=== PATIENT | female | born 1995 | race African-American/Black ===

== ENCOUNTER 2021-03-20 08:01 | Inpatient (IN) | payer MEDICAID ==
[~2021-03-20] VITALS: Ht 172.7 cm; Wt 78.6 kg
[2021-03-20] MEDS ORDERED: OXYTOCIN 30U/ 0.9% NaCL 500ML 500 ML ONE (08:23)
[2021-03-20] MEDS ORDERED: OXYTOCIN 30U/ 0.9% NaCL 500ML 500 ML IV ONE (08:30)
[2021-03-20] MEDS ORDERED: FENTANYL PF 100 MCG/2ML IVPush PRN (08:30)
[2021-03-20] MEDS ORDERED: TERBUTALINE 1 MG/ML, 1ML SQ PRN (08:30)
[2021-03-20] MEDS ORDERED: TERBUTALINE 1 MG/ML, 1ML IVPush PRN (08:30)
[2021-03-20] MEDS ORDERED: CALCIUM CARBONATE 500 MG TAB.CHEW PO PRN (08:30)
[2021-03-20] MEDS ORDERED: D5%-LACTATED RINGERS 1,000 ML IV SCH (08:30)
[2021-03-20] MEDS ORDERED: ONDANSETRON 2MG/ML, 2ML IVPush PRN (08:30)
[2021-03-20] MEDS ORDERED: FENTANYL PF 100 MCG/2ML IV PRN (08:30)
[2021-03-20] MEDS ORDERED: OXYTOCIN 30U/ 0.9% NaCL 500ML 500 ML IV PRN (08:30)
[2021-03-20] MEDS ORDERED: PLEASE ENTER HEIGHT AND WEIGHT MC SCH (08:30)
[2021-03-20 08:38] LABS: BASOPHILS % (AUTO) 0 % (0-1); EOSINOPHILS % (AUTO) 1 % (1-7); LYMPHOCYTES % (AUTO) 28 % (22-44); MEAN CORPUSCULAR HEMOGLOBIN 24.2 pg (27.0-34.8); MEAN CORPUSCULAR HGB CONC 32.2 g/dL (32.4-35.8); MEAN PLATELET VOLUME 7.4 fL (7.4-10.4); MONOCYTES % (AUTO) 10 % (2-9); NEUTROPHILS % (AUTO) 61 % (42-75); PLATELET COUNT 301 x10^3/uL (130-400); RED BLOOD COUNT 4.37 x10^6/uL (3.82-5.3); RED CELL DISTRIBUTION WIDTH 25.1 % (9.6-15.2)
[2021-03-20] MEDS: LACTATED RINGERS 1,000 ML IV SCH ×4 (08:51→12:48)
[2021-03-20 09:03] VITALS: BP 91/57
[2021-03-20 09:20] LABS: ANISOCYTOSIS 1+; ECHINOCYTES 1+; MICROCYTOSIS 1+; OVALOCYTES 1+
[2021-03-20 09:21] LABS: <PLATELET ESTIMATE> ADEQUATE; <PLT MORPHOLOGY> NORMAL PLT MORPH; HYPOCHROMIA 1+; POLYCHROMASIA 1+
[2021-03-20] MEDS ORDERED: BUPIVACAINE 0.25% ONE (10:57)
[2021-03-20] MEDS ORDERED: FENTANYL/BUPIV./NS/PF 250 ML EPIDCONT ONE (10:57)
[2021-03-20] MEDS ORDERED: LACTATED RINGERS 1,000 ML IVBOLUS PRN (13:00)
[2021-03-20] MEDS ORDERED: EPHEDRINE 50 MG/ML, 1ML IVPush PRN (13:00)
[2021-03-20] MEDS ORDERED: LACTATED RINGERS 1,000 ML IV SCH (13:00)
[2021-03-20] MEDS ORDERED: FENTANYL/BUPIV./NS/PF 250 ML EPIDCONT SCH (13:00)
[2021-03-20] MEDS ORDERED: NEWBORN KIT ONE (13:18)
[2021-03-20] MEDS ORDERED: MAGNESIUM HYDROXIDE 8%, 30ML UDC PO PRN (18:30)
[2021-03-20] MEDS ORDERED: CARBOPROST TROMETHAMINE 250 MCG/ML, 1ML IM PRN (18:30)
[2021-03-20] MEDS ORDERED: DIPH,PERTUSS(ACELL),TET VAC/PF NC IM-VACC PRN (18:30)
[2021-03-20] MEDS ORDERED: GLYCERIN ADULT SUPP PR PRN (18:30)
[2021-03-20] MEDS ORDERED: OXYcodone/APAP 5/325MG TABLET PO PRN ×2 (18:30)
[2021-03-20] MEDS ORDERED: SIMETHICONE 80 MG CHEW TAB PO PRN (18:30)
[2021-03-20] MEDS ORDERED: METHYLERGONOVINE 0.2 MG/ML IM PRN (18:30)
[2021-03-20] MEDS ORDERED: MISOPROSTOL 200 MCG TABLET PR PRN (18:30)
[2021-03-20] MEDS ORDERED: ONDANSETRON 2MG/ML, 2ML IV PRN (18:30)
[2021-03-20] MEDS ORDERED: METOCLOPRAMIDE 5 MG/ML, 2ML IV PRN (18:30)
[2021-03-20] MEDS ORDERED: ACETAMINOPHEN 325 MG TABLET PO PRN ×2 (18:30)
[2021-03-20] MEDS ORDERED: DOCUSATE 100 MG CAPSULE PO PRN (18:30)
[2021-03-20] MEDS ORDERED: BISACODYL 10 MG SUPP PR PRN (18:30)
[2021-03-20] MEDS: OXYTOCIN 30U/ 0.9% NaCL 500ML 500 ML IV SCH (18:47)
[2021-03-20 20:45] VITALS: BP 94/58
[2021-03-20] MEDS: IBUPROFEN 600 MG TABLET PO PRN (23:40)
[2021-03-21 00:30] VITALS: BP 98/49
[2021-03-21 02:09] LABS: BASOPHILS % (AUTO) 0 % (0-1); EOSINOPHILS % (AUTO) 1 % (1-7); LYMPHOCYTES % (AUTO) 20 % (22-44); MEAN CORPUSCULAR HEMOGLOBIN 24.1 pg (27.0-34.8); MEAN CORPUSCULAR HGB CONC 31.8 g/dL (32.4-35.8); MEAN PLATELET VOLUME 7.8 fL (7.4-10.4); MONOCYTES % (AUTO) 10 % (2-9); NEUTROPHILS % (AUTO) 69 % (42-75); PLATELET COUNT 296 x10^3/uL (130-400); RED BLOOD COUNT 4.03 x10^6/uL (3.82-5.3); RED CELL DISTRIBUTION WIDTH 25.4 % (9.6-15.2)
[2021-03-21 04:10] VITALS: BP 95/56
[2021-03-21] MEDS: OXYTOCIN 30U/ 0.9% NaCL 500ML 500 ML IV SCH ×2 (04:30→14:30)
[2021-03-21] MEDS ORDERED: IBUP-1222 PO (08:16)
[2021-03-21 08:45] VITALS: BP 94/58
[2021-03-21] MEDS: IBUPROFEN 600 MG TABLET PO PRN ×2 (08:55→17:36)
[2021-03-21] MEDS ORDERED: PRENATAL VIT/IRON/FA 1 EACH TABLET PO SCH (09:00)
[2021-03-21 13:30] VITALS: BP 100/68
== END 2021-03-21 18:00 | disposition home or self-care (01) | DRG 807 ==
LOC: LDIP 08:01 → 2NW 20:40
PROVIDERS: ADMIT Obstetrics & Gynecology; ATTEND Obstetrics & Gynecology
PROC: 10E0XZZ Delivery of Products of Conception, External Approach (ICD-10-PCS; principal; 2021-03-20)
PROC: 0KQM0ZZ Repair Perineum Muscle, Open Approach (ICD-10-PCS; 2021-03-20)
PROC: 3E0R3BZ Introduction of Anesthetic Agent into Spinal Canal, Percutaneous Approach (ICD-10-PCS; 2021-03-20)
PROC: 00HU33Z Insertion of Infusion Device into Spinal Canal, Percutaneous Approach (ICD-10-PCS; 2021-03-20)
DX: O99.02 Anemia complicating childbirth (principal); Z37.0 Single live birth; D50.9 Iron deficiency anemia, unspecified; O70.1 Second degree perineal laceration during delivery; Z3A.39 39 weeks gestation of pregnancy; D56.0 Alpha thalassemia; O75.89 Other specified complications of labor and delivery; O77.0 Labor and delivery complicated by meconium in amniotic fluid
CPT/HCPCS: 36415; 82728; 83540; 83550; 85025; 86592; 86850; 86900; 86923; 88305; G0378; J2405; J2590; J3010; J7120